=== PATIENT | male | born 1940 | race Caucasian/White ===

== ENCOUNTER 2021-05-04 23:40 | Inpatient (IN) | payer OTHER ==
[~2021-05-04] VITALS: Ht 170.2 cm; Wt 81.6 kg
[~2021-05-04 23:40] MED LIST: ARICEPT10 MG PO; ASPIR 8181 MG PO; CEFDINIR250 MG/5 M PO; FISH OIL 1,0001 EACH PO; MULTIVITAMINS1 EAC1 PO; NAMENDA10 MG PO; ZOLOFT50 MG PO
[2021-05-05 00:22] LABS: HEMOGLOBIN 14.7 gm/dl (14.0-17.5); RED BLOOD COUNT 4.96 M/UL (4.20-5.50); WHITE BLOOD COUNT 14.4 K/UL (4.5-11.0)
[2021-05-05 05:09] LABS: HEMOGLOBIN 13.2 gm/dl (14.0-17.5); WHITE BLOOD COUNT 12.8 K/UL (4.5-11.0)
[2021-05-05 05:23] LABS: RED BLOOD COUNT 4.27 M/UL (4.20-5.50)
[2021-05-05] MEDS ORDERED: NAMENDA5 MG PO (07:15)
[2021-05-05] MEDS ORDERED: NORVASC5 MG PO (07:15)
[2021-05-05] MEDS ORDERED: ZYPREXA2.5 MG PO (07:15)
[2021-05-05] MEDS ORDERED: DESYREL 50 MG T50 MG PO (07:16)
[2021-05-05] MEDS ORDERED: ZYPREXA5 MG PO (07:16)
[2021-05-05] MEDS ORDERED: FLOMAX 0.4 MG0.4 MG PO (07:17)
[2021-05-05] MEDS ORDERED: MELATONIN3 MG PO (07:17)
[2021-05-05] MEDS ORDERED: ZOFRAN ODT 4 MG4 MG PO (07:23)
[2021-05-05] MEDS ORDERED: MECLIZINE HCL25 MG PO (16:53)
[2021-05-06 02:51] LABS: RED BLOOD COUNT 3.58 M/UL (4.20-5.50); WHITE BLOOD COUNT 5.9 K/UL (4.5-11.0)
[2021-05-07 02:55] LABS: HEMOGLOBIN 12.7 gm/dl (14.0-17.5); WHITE BLOOD COUNT 6.5 K/UL (4.5-11.0)
[2021-05-07 02:59] LABS: RED BLOOD COUNT 4.18 M/UL (4.20-5.50)
--- NOTE | 2021-05-08 01:38 | NUR ---
REPORT TO CHAI DENTON PT TO TRANSFER TO 5TH FLOOR ROOM 4
--- NOTE | 2021-05-08 02:26 | NUR ---
PATIENT JUST TRANSFERRED TO FLOOR. I HAVE REVIEWED THE PCU NURSE'S SHIFT ASSESSMENT ON THE PATIENT AND I AGREE WITH ALL ASPECTS. CHARTED MY OWN SKIN ASSESSMENT.
[2021-05-08 02:49] LABS: HEMOGLOBIN 13.3 gm/dl (14.0-17.5); RED BLOOD COUNT 4.52 M/UL (4.20-5.50)
[2021-05-08 02:53] LABS: WHITE BLOOD COUNT 10.1 K/UL (4.5-11.0)
--- NOTE | 2021-05-08 11:43 | NUR ---
informed dr. wallace with her rounds earlier on the floor of patient sleeping soundly and Jorge Luis having difficulty waking him up. daughter at bedside
--- NOTE | 2021-05-08 19:02 | NUR ---
family at bedside and informed nurse that patient has open eyes often and when spoken to patient mumbles with his responses. patient resting comfortably.
[2021-05-09 07:57] LABS: HEMOGLOBIN 12.5 gm/dl (14.0-17.5); RED BLOOD COUNT 4.15 M/UL (4.20-5.50); WHITE BLOOD COUNT 10.4 K/UL (4.5-11.0)
[2021-05-09 09:15] LABS: BUN/CREATININE RATIO 39 (0-10)
--- NOTE | 2021-05-09 14:42 | NUR ---
patient getting a bed bath during the pulse ox goes down below 80's. continue to monitor.
--- NOTE | 2021-05-09 15:51 | NUR ---
earlier informed dr. rose of patient pulse ox going down below 80's with movement, changing position. patient on 022L via nasal cannula and received order. informed RT
[2021-05-10 12:15] LABS: HBSAG SCREEN Negative (Negative); HEP A AB, IGM Negative (Negative); HEP B CORE AB, IGM Negative (Negative); HEP C VIRUS AB <0.1 (0.0-0.9)
[2021-05-11 06:27] LABS: HEMOGLOBIN 11.3 gm/dl (14.0-17.5); WHITE BLOOD COUNT 8.7 K/UL (4.5-11.0)
[2021-05-11 06:39] LABS: RED BLOOD COUNT 3.71 M/UL (4.20-5.50)
[2021-05-11 06:58] LABS: BUN/CREATININE RATIO 29 (0-10)
--- NOTE | 2021-05-12 14:51 | NUR ---
REPORT CALLED TO [facility] AND GIVEN TO MIKE. PATIENT IS WAITING ON AMBULANCE TO ARRIVE TO TRANSPORT HOME WITH HOSPICE.
== END 2021-05-12 18:06 | disposition home health service (06) | DRG 177 ==
LOC: ER1 23:40 → M/S 05-05 03:20 → CDU 05-05 03:20 → PROG CARE 05-05 06:00 → M/S 05-08 02:05
PROVIDERS: Emergency Medicine; Internal Medicine; Internal Medicine Infectious Disease; ADMIT Internal Medicine
PROC: 8E0ZXY6 Isolation (ICD-10-PCS; principal; 2021-05-05)
PROC: 3E0333Z Introduction of Anti-inflammatory into Peripheral Vein, Percutaneous Approach (ICD-10-PCS; 2021-05-05)
DX: U07.1 COVID-19 (principal); E43 Unspecified severe protein-calorie malnutrition; G93.41 Metabolic encephalopathy; J96.01 Acute respiratory failure with hypoxia; J12.82 Pneumonia due to coronavirus disease 2019; N17.9 Acute kidney failure, unspecified; E87.0 Hyperosmolality and hypernatremia; Z51.5 Encounter for palliative care; R73.9 Hyperglycemia, unspecified; T38.0X5A Adverse effect of glucocorticoids and synthetic analogues, initial encounter; G30.9 Alzheimer's disease, unspecified; E86.0 Dehydration; F02.80 Dementia in other diseases classified elsewhere, unspecified severity, without behavioral disturbance, psychotic disturbance, mood disturbance, and anxiety; R62.7 Adult failure to thrive; R13.10 Dysphagia, unspecified; L89.626 Pressure-induced deep tissue damage of left heel; F41.9 Anxiety disorder, unspecified; N40.0 Benign prostatic hyperplasia without lower urinary tract symptoms; G93.89 Other specified disorders of brain; Z98.890 Other specified postprocedural states; Z68.28 Body mass index [BMI] 28.0-28.9, adult
CPT/HCPCS: 0240U; 36415; 36600; 70450; 71045; 80048; 80053; 80074; 81001; 82140; 82803; 82962; 83605; 83735; 84100; 84443; 85025; 85027; 86140; 87040; 87086; 92526; 92610; 93005; 94640; 94664; 94760; 96365; 96375; 97110-GP-CQ; 97161; 97166; 99285; A6212; J0456; J0696; J1100; J1335; J1650; J7030; J7070